=== PATIENT | male | born 1975 | race Caucasian/White ===

== ENCOUNTER 2020-05-09 22:00 | Emergency (ER) | payer SELFPAY ==
[~2020-05-09] VITALS: Ht 170.2 cm; Wt 61.2 kg
[2020-05-09 22:07] VITALS: BP 133/95
[2020-05-09] MEDS ORDERED: FLUT9.9S NS (22:28)
== END 2020-05-09 22:38 | disposition home or self-care (01) ==
LOC: ER 22:03
DX: F15.10 Other stimulant abuse, uncomplicated (principal); R09.81 Nasal congestion

== ENCOUNTER 2023-04-06 16:12 | Emergency (ER) | payer SELFPAY ==
[~2023-04-06] VITALS: Ht 165.1 cm; Wt 59.0 kg
[2023-04-06 16:23] VITALS: TEMP 98.1
[2023-04-06] MEDS ORDERED: LIDOCAINE 5% (PATCH) 1 EA PATCH TP ONE ×2 (17:00→17:09)
[2023-04-06] MEDS ORDERED: KETOROLAC TROMETHAMINE INJ 60 MG/2 ML VIAL IM ONE (17:00)
[2023-04-06] MEDS ORDERED: KETOROLAC TROMETHAMINE INJ 30 MG/ML VIAL ONE (17:09)
[2023-04-06] MEDS ORDERED: CYCLOBENZAPRINE 10 MG TABLET ONE (17:57)
[2023-04-06] MEDS ORDERED: CYCLOBENZAPRINE 10 MG TABLET PO ONE (18:00)
[2023-04-06] MEDS ORDERED: CYCL5TAB PO (18:06)
[2023-04-06] MEDS ORDERED: IBUP-1957 PO (18:06)
[2023-04-06 21:25] VITALS: BP 113/85; O2SAT 100
== END 2023-04-06 18:15 | disposition home or self-care (01) ==
LOC: ER 16:15
DX: M25.511 Pain in right shoulder (principal); Z60.2 Problems related to living alone
CPT/HCPCS: 99283; 96372; 73030; J1885